=== PATIENT | female | born 1995 ===

== ENCOUNTER 2022-03-07 04:51 | Inpatient (IN) | payer SELFPAY ==
[2022-03-07] MEDS ORDERED: ePHEDrine 50 MG/ML SDV IVPUSH PRN ×2 (05:04)
[2022-03-07] MEDS ORDERED: Phenylephrine HCl In 0.9% NaCl 1 MG/10 ML Vial IVPUSH SCH (05:15)
[2022-03-07] MEDS ORDERED: Ropivacaine HCl/PF 400 MG in Premix Bag 1 BAG EPIDUR SCH (05:15)
[2022-03-07] MEDS ORDERED: Butorphanol 1 MG/ML SDV IVPUSH PRN (10:48)
[2022-03-07] MEDS ORDERED: Sodium Chloride 0.9% 2.5 ML Syringe FLUSH PRN (10:48)
[2022-03-07] MEDS ORDERED: Misoprostol 200 MCG Tab PO PRN (10:48)
[2022-03-07] MEDS ORDERED: Sodium Chloride 0.9% 20 ML SDV IV PRN (10:48)
[2022-03-07] MEDS ORDERED: Lidocaine 1% 50 ML MDV INJECT PRN (10:48)
[2022-03-07] MEDS ORDERED: Ondansetron 4 MG/2 ML SDV IVPUSH PRN (10:48)
[2022-03-07] MEDS ORDERED: Tranexamic Acid 1,000 MG in Sodium Chloride 0.9% 100 ML IV PRN (10:48)
[2022-03-07] MEDS ORDERED: Methylergonovine 0.2 MG/1 ML Amp IM PRN (10:48)
[2022-03-07] MEDS ORDERED: Sodium Chloride 0.9% 10 ML Syringe FLUSH PRN (10:48)
[2022-03-07] MEDS ORDERED: Terbutaline 1 MG/ML SDV SUBCUT PRN (10:48)
[2022-03-07] MEDS ORDERED: Carboprost Tromethamine 250 MCG/1 ML Amp IM PRN (10:48)
[2022-03-07] MEDS ORDERED: Water For Irrigation,Sterile 1,000 ML Container IRR PRN (10:48)
[2022-03-07] MEDS ORDERED: Lactated Ringers 1,000 ML IV SCH (11:00)
[2022-03-07] MEDS ORDERED: Oxytocin/0.9 % Sodium Chloride 30 UNIT/500 ML BAG IV SCH ×2 (11:00)
[2022-03-07] MEDS ORDERED: Witch Hazel Medicated Pads 40/Jar TOP PRN (17:10)
[2022-03-07] MEDS ORDERED: oxyCODONE 5 MG Tab PO PRN (17:10)
[2022-03-07] MEDS ORDERED: Lanolin 100% Cream 7 GM Tube TOP PRN (17:10)
[2022-03-07] MEDS ORDERED: Ibuprofen 800 MG Tab PO PRN (17:10)
[2022-03-07] MEDS ORDERED: Benzocaine/Menthol 20%-0.5% Spray 78 GM Cannister TOP PRN (17:10)
[2022-03-07] MEDS ORDERED: Docusate Sodium 100 MG Cap PO PRN (17:10)
[2022-03-07] MEDS ORDERED: Acetaminophen 500 MG Tab PO PRN ×2 (17:10)
[2022-03-07] MEDS ORDERED: Bisacodyl 10 MG Supp RECTAL PRN (17:10)
[2022-03-07] MEDS ORDERED: Ibuprofen 400 MG Tab PO PRN (17:10)
[2022-03-08 22:25] VITALS: BP 124/72; PULSE 73
== END 2022-03-08 20:54 | disposition home or self-care (01) | DRG 805 ==
LOC: MW.OBCHECK 04:51 → MW.OB 04:52 → MW.OBCHECK 10:47 → MW.OB 10:48 → OBSVTOIN 16:55 → MW.OB 20:54
PROVIDERS: ADMIT Obstetrics & Gynecology; ATTEND Obstetrics & Gynecology
PROC: 10E0XZZ Delivery of Products of Conception, External Approach (ICD-10-PCS; principal; 2022-03-07)
PROC: 8E0ZXY6 Isolation (ICD-10-PCS; 2022-03-07)
DX: O48.0 Post-term pregnancy (principal); U07.1 COVID-19; Z3A.42 42 weeks gestation of pregnancy; Z37.0 Single live birth; O98.52 Other viral diseases complicating childbirth
CPT/HCPCS: 36415; 59025; 59409; 85014; 85018; 85027; 86592; 86850; 86900; 86901; J2590; J7120; U0002